=== PATIENT | female | born 1970 | race Caucasian/White ===

== ENCOUNTER 2019-04-21 19:39 | Emergency (ER) | payer MEDICAID ==
[~2019-04-21] VITALS: Ht 162.6 cm; Wt 42.8 kg
[~2019-04-21 19:39] MED LIST: NO HOME MEDS; TRIA15CR62 TP
[2019-04-21 19:50] VITALS: BP 123/73
[2019-04-21] MEDS ORDERED: HYDR-3965 PO (20:33)
[2019-04-21] MEDS ORDERED: HYDROcodone/acetaminophen 5mg/325mg tablet PO ONE (20:35)
== END 2019-04-21 21:25 | disposition home or self-care (01) ==
LOC: ER 19:40
DX: S93.491A Sprain of other ligament of right ankle, initial encounter (principal); F17.210 Nicotine dependence, cigarettes, uncomplicated; F10.10 Alcohol abuse, uncomplicated; F15.90 Other stimulant use, unspecified, uncomplicated; Z88.1 Allergy status to other antibiotic agents; Z79.899 Other long term (current) drug therapy; X50.1XXA Overexertion from prolonged static or awkward postures, initial encounter; Y93.89 Activity, other specified; Y92.89 Other specified places as the place of occurrence of the external cause; Y99.8 Other external cause status; Y90.9 Presence of alcohol in blood, level not specified
CPT/HCPCS: 73610; 99283

== ENCOUNTER 2019-04-26 21:13 | Emergency (ER) | payer MEDICAID ==
[~2019-04-26] VITALS: Ht 162.6 cm; Wt 60.0 kg
[~2019-04-26 21:13] MED LIST changes: +HYDR-3965 PO
[2019-04-26 21:22] VITALS: BP 107/49
[2019-04-26] MEDS ORDERED: HYDROcodone/acetaminophen 5mg/325mg tablet PO ONE (22:45)
== END 2019-04-26 23:08 | disposition home or self-care (01) ==
LOC: ER 21:13
DX: S93.401A Sprain of unspecified ligament of right ankle, initial encounter (principal); S90.01XA Contusion of right ankle, initial encounter; F15.90 Other stimulant use, unspecified, uncomplicated; Z88.1 Allergy status to other antibiotic agents; Z79.899 Other long term (current) drug therapy; Z88.8 Allergy status to other drugs, medicaments and biological substances; X50.1XXA Overexertion from prolonged static or awkward postures, initial encounter; Y93.89 Activity, other specified; Y92.89 Other specified places as the place of occurrence of the external cause; Y99.8 Other external cause status
CPT/HCPCS: 99284

== ENCOUNTER → 2019-05-31 | Outpatient (CLI) | payer MEDICAID ==
[~2019-05-31] MED LIST changes: -HYDR-3965 PO
== END | disposition home or self-care (01) ==
LOC: ORTHO 09:28
PROVIDERS: ATTEND Nurse Practitioner
DX: S93.401D Sprain of unspecified ligament of right ankle, subsequent encounter (principal); F17.210 Nicotine dependence, cigarettes, uncomplicated; Z88.1 Allergy status to other antibiotic agents; X58.XXXD Exposure to other specified factors, subsequent encounter
CPT/HCPCS: G0463

== ENCOUNTER 2021-07-19 18:46 | Emergency (ER) | payer MEDICAID, OTHER ==
[~2021-07-19] VITALS: Ht 162.6 cm; Wt 61.4 kg
[2021-07-19 18:49] VITALS: BP 118/62
== END 2021-07-19 21:15 | disposition home or self-care (01) ==
LOC: ER 18:47
DX: S92.33 Fracture of third metatarsal bone (principal); S92.325G Nondisplaced fracture of second metatarsal bone, left foot, subsequent encounter for fracture with delayed healing; Z91.19 Patient's noncompliance with other medical treatment and regimen; F15.90 Other stimulant use, unspecified, uncomplicated; Z72.89 Other problems related to lifestyle; Z88.1 Allergy status to other antibiotic agents; Z88.8 Allergy status to other drugs, medicaments and biological substances; Z79.899 Other long term (current) drug therapy; X58.XXXD Exposure to other specified factors, subsequent encounter
CPT/HCPCS: 73630; 99283

== ENCOUNTER 2022-03-06 22:24 | Emergency (ER) | payer OTHER ==
[~2022-03-06] VITALS: Ht 162.6 cm; Wt 61.4 kg
[2022-03-06 22:38] VITALS: BP 122/69
== END 2022-03-07 01:07 | disposition left against medical advice (07) ==
LOC: ER 22:27
DX: M25.571 Pain in right ankle and joints of right foot (principal); M25.471 Effusion, right ankle; F17.200 Nicotine dependence, unspecified, uncomplicated; F15.90 Other stimulant use, unspecified, uncomplicated; Z72.89 Other problems related to lifestyle; Z88.1 Allergy status to other antibiotic agents; Z79.899 Other long term (current) drug therapy; Z88.8 Allergy status to other drugs, medicaments and biological substances
CPT/HCPCS: 73610; 99283; A6449